=== PATIENT | male | born 1980 | race Caucasian/White ===

== ENCOUNTER 2016-10-31 21:43 | Emergency (ER) | payer MEDICARE, OTHER ==
[2016-10-31 22:39] VITALS: BP 130/75
[2016-10-31] MEDS: CEPHALEXIN 250 MG CAPSULE PO ONE (22:51)
[2016-10-31] MEDS: LORATADINE/PSEUDOEPHEDRINE 1 EACH TAB.ER.12H PO ONE (22:56)
--- NOTE | 2016-11-01 06:53 | ED Physician Documentation ---
Upper Respiratory Symptoms - HISTORIAN Historian: patient - HPI Stated Complaint: cough Chief Complaint: Cough/ Upper Respiratory Additional Information: prod green, body aches, uri symptoms Onset: days ago (7) Duration: sudden-Onset Context: denies: recent foreign travel, insect bite(s), tick(s), recent chemotherapy, multiple patients, same sx Severity: moderate Associated Symptoms: chills, sweating, runny nose, sinus drainage, sore throat, productive cough Worsened by Deep Breath: Yes Further Comments: no - ROS CONST/EYES: weakness CVS/RESP: other (cough) LYMPH: denies: leg swelling, rash, swollen glands, ankle swelling GI/: none NEURO/PSYCH: denies: fainting, dizziness, confusion, anxiety, depression MS/SKIN: denies: joint pain, muscle aches, rash - PAST HX Lung Disease: none PE Risk Factors: none Other History: other (hemophelia) Surgeries/Procedures: other (ortho) Immunizations: referred to PCP Allergies/Adverse Reactions: Allergies Allergy/AdvReac Type Severity Reaction Status Date / Time povidone-iodine Allergy Verified 10/31/16 22:42 [From Betadine] soap [From Betadine] Allergy Verified 10/31/16 22:42 Home Medications: Ambulatory Orders Medication Instructions Recorded NK [NK] 06/04/14 - SOCIAL HX Smoking History: non-smoker Alcohol Use: none Drug Use: none - FAMILY HX Family History: no significant history - VITAL SIGNS Vital Signs: Vital Signs Temp Pulse Resp BP Pulse Ox 98.1 F 66 18 130/75 96 10/31/16 21:43 10/31/16 23:30 10/31/16 23:30 10/31/16 23:30 10/31/16 23:30 - REVIEWED ASSESSMENTS Nursing Assessment Reviewed: Yes Vitals Reviewed: Yes Progress - Results/Orders Results/Orders: no testing ordered - Progress Progress: given claritin-d and keflex 1000 mg p.o. in er Critical Care Note - Critical Care Note Total Time (mins): 0 ED Results Lab/Radiology - Lab Results Lab Results: none ordered - Radiology Radiology Impressions: none ordered - Orders Orders: ED Orders Category Date Time Status Cephalexin [Keflex] Med 10/31/16 22:37 Discontinued 1,000 mg PO NOW ONE Loratadine/Pseudoephedrine [Claritin-D 12 Hour Tablet] Med 10/31/16 22:37 Discontinued 1 each PO NOW ONE Upper Respiratory Symptoms - EXAM General Appearance: alert, moderate distress EENT: eyes nml inspection, lids & conjunct. nml, PERRL, pain over sinuses, frontal, maxillary, ethmoid, TM dullness (R), TM dullness (L), mucosal edema Neck: normal inspection, thyroid normal, supple Respiratory: no resp. distress, breath sounds nml, no pain on inspiration, speaks full sentences Abdomen: non-tender, no organomegaly, nml bowel sounds CVS: reg rate & rhythm, heart sounds normal, equal pulses, no murmur, no gallop , PMI nml, no JVD, no friction rub Skin: color nml, no rash, warm,dry Extremities: non-tender, normal range of motion, no evidence of injury, no edema Neuro/Psych: oriented x3, neuro intact, mood/affect nml Discharge Clincal Impression: bronchitis Home Medications: Ambulatory Orders NK [NK] 06/04/14 Comments: discharged with antibiotic and claritin-d script Condition: Stable Disposition: 01 HOME, SELF-CARE Decision to Admit: NO Decision Time: 23:25
== END 2016-10-31 23:00 | disposition home or self-care (01) ==
LOC: ED 21:43
DX: J20.9 Acute bronchitis, unspecified (principal)
CPT/HCPCS: 99283

== ENCOUNTER 2017-07-21 21:48 | Emergency (ER) | payer SELFPAY ==
[2017-07-21 22:29] VITALS: BP 111/67
--- NOTE | 2017-07-21 22:55 | ED Physician Documentation ---
Lower Extremity Problem - HISTORIAN Historian: patient - HPI Stated Complaint: Right knee pain Chief Complaint: Lower Extremity Problem Additional Information: has bruise like lesion rt leg approx 3 in by 5 inches lat aspect aprox 5 in below knee. 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) Surgeries/Procedures: other (spinal fusion) Allergies/Adverse Reactions: Allergies Allergy/AdvReac Type Severity Reaction Status Date / Time ibuprofen Allergy Intermediate Verified 07/21/17 22:33 Iodine and Iodide Containing Allergy Intermediate Verified 07/21/17 22:30 Produc povidone-iodine Allergy Intermediate Verified 07/21/17 22:30 [From Betadine] Home Medications: Ambulatory Orders Medication Instructions Recorded NK [NK] 06/04/14 - SOCIAL HX Smoking History: non-smoker Alcohol Use: none Drug Use: none - FAMILY HX Family History: no significant history - VITAL SIGNS Vital Signs: Vital Signs Temp Pulse Resp BP Pulse Ox 98.0 F 77 16 111/67 96 07/21/17 21:55 07/21/17 21:55 07/21/17 21:55 07/21/17 21:55 07/21/17 21:55 - REVIEWED ASSESSMENTS Nursing Assessment Reviewed: Yes Vitals Reviewed: Yes Lower Extremity Problem - EXAM General Appearance: mild distress Knees: right: non-tender (as described above) Neuro/Tendon: normal sensation, normal motor functions, normal tendon functions , responds to pain, no evidence tendon injury. No: motor deficit, sensory deficit EENT: eye inspection normal RESPIRATORY: no resp distress, chest non-tender, breath sounds normal CVS: reg rate & rhythm, heart sounds normal, equal pulses JOINT: nml ROM, Nml gait/weight bearing. No: joints nml (rt knee) VASCULAR: no vascular compromise NEURO/PSYCH: oriented X3, motor nml, sensation nml, mood/affect nml, cognition normal SKIN: warm/dry, normal color. No: cyanosis, diaphoresis, jaundice, mottled BACK: normal inspection Discharge Clincal Impression: non a/b flu, error re non a non b flu, super thrombophlebitis, poss joint effusion/blood, hx lo testosterone, mild hemophelia Referrals: Primary Doctor,No [Primary Care Provider] - 2 Days Comments: rec pt get ultrasound for definitive dx--not available here but referral to [facility] declined for tonight will check w/ pcp or go to [facility] in [place]- he works there- homans sign negative Condition: Good Disposition: 01 HOME, SELF-CARE Decision to Admit: NO Decision Time: 23:42
== END 2017-07-21 22:50 | disposition home or self-care (01) ==
LOC: ED 21:48
DX: M25.561 Pain in right knee (principal)
CPT/HCPCS: 99282